=== PATIENT | female | born 1940 | race Caucasian/White ===

== ENCOUNTER 2016-06-22 10:00 | Outpatient (CLI) | payer MEDICARE, BC ==
[2015-05-26 12:15] VITALS: O2SAT 98
== END 2016-06-22 10:01 | disposition home or self-care (01) | DRG 561 ==
LOC: CONVCARE 10:00
PROVIDERS: ATTEND Orthopaedic Surgery
DX: S82.852D Displaced trimalleolar fracture of left lower leg, subsequent encounter for closed fracture with routine healing (principal); M17.12 Unilateral primary osteoarthritis, left knee; M21.062 Valgus deformity, not elsewhere classified, left knee; M79.605 Pain in left leg
CPT/HCPCS: 72170; 73564; 73610

== ENCOUNTER 2016-07-27 05:25 | Inpatient (IN) | payer MEDICARE, BC ==
[2016-07-27] MEDS ORDERED: LACTATED RINGERS 1,000 ML IV ONE (06:00)
[2016-07-27] MEDS: SCOPOLAMINE 1.5MG PATCH TD SCH (06:15)
[2016-07-27] MEDS ORDERED: LACTATED RINGERS 1,000 ML IV SCH (07:00)
[2016-07-27] MEDS ORDERED: SODIUM CHLORIDE 20 ML 40 ML ONE (07:18)
[2016-07-27] MEDS ORDERED: TRANEXAMIC ACID 100 MG/ML SOL ONE (07:18)
[2016-07-27] MEDS ORDERED: LIDOCAINE HCL 1% MPF SOL ONE (07:30)
[2016-07-27] MEDS ORDERED: MORPHINE SULFATE 0.5 MG/ML SOL ONE (07:30)
[2016-07-27] MEDS ORDERED: MIDAZOLAM 2 MG/2 ML SOL ONE (07:30)
[2016-07-27] MEDS ORDERED: METOCLOPRAMIDE HYDROCHLORIDE 5 MG/ML SOL ONE (07:30)
[2016-07-27] MEDS ORDERED: PROPOFOL 10 MG/ML EMU IV ONE (07:30)
[2016-07-27] MEDS ORDERED: DEXAMETHASONE 20 MG/5 ML (4 MG/ML SOL) ONE (07:30)
[2016-07-27] MEDS ORDERED: ONDANSETRON HCL 4 MG/2 ML SOL ONE (07:30)
[2016-07-27] MEDS ORDERED: PROPOFOL 500 MG/50 ML EMU IV ONE (07:31)
[2016-07-27] MEDS ORDERED: CEFAZOLIN SODIUM 1 GM PDS ONE (07:34)
[2016-07-27] MEDS ORDERED: FENTANYL CITRATE 50 MCG/ML SOL ONE ×4 (08:01→10:47)
[2016-07-27] MEDS ORDERED: SUCCINYLCHOLINE CHLORIDE 20 MG/ML SOL IV ONE (08:05)
[2016-07-27] MEDS ORDERED: ROCURONIUM BROMIDE 10 MG/ML SOL IV ONE (08:05)
[2016-07-27] MEDS ORDERED: KETAMINE HYDROCHLORIDE 50 MG/ML SOL ONE (08:18)
[2016-07-27] MEDS: BUPIVACAINE LIPOSOME 20 ML SUS ONE ×2 (09:01→09:35)
[2016-07-27] MEDS ORDERED: LABETALOL HYDROCHLORIDE 5 MG/ML SOL IV ONE (09:10)
[2016-07-27] MEDS ORDERED: ALUMINUM/MAGNESIUM 30 ML SUS PO PRN (10:01)
[2016-07-27] MEDS ORDERED: MORPHINE SULFATE 10 MG/ML SOL IV PRN (10:01)
[2016-07-27] MEDS ORDERED: MAGNESIUM HYDROXIDE 30 ML SUS PO PRN (10:01)
[2016-07-27] MEDS ORDERED: ONDANSETRON 4 MG ODT BU PRN (10:01)
[2016-07-27] MEDS ORDERED: FLEET ENEMA PR PRN (10:01)
[2016-07-27] MEDS ORDERED: SODIUM CHLORIDE 0.9% 500 ML 500 ML IV PRN (10:01)
[2016-07-27] MEDS ORDERED: BISACODYL 10 MG SUP PR PRN (10:01)
[2016-07-27] MEDS ORDERED: TEMAZEPAM 15MG 15 MG CAP PO PRN (10:01)
[2016-07-27] MEDS ORDERED: ONDANSETRON HCL 4 MG/2 ML SOL IV PRN (10:01)
[2016-07-27] MEDS ORDERED: KETOROLAC TROMETHAMINE 30 MG/ML SOL ONE (10:47)
[2016-07-27] MEDS ORDERED: KETOROLAC TROMETHAMINE 30 MG/ML SOL IV ONE (10:50)
[2016-07-27] MEDS ORDERED: FENTANYL CITRATE 50 MCG/ML SOL IV ONE (10:52)
[2016-07-27] MEDS: SODIUM CHLORIDE 0.9% FLUSH 10 ML SOL IV SCH ×2 (12:51→18:13)
[2016-07-27] MEDS: DIPHENHYDRAMINE 50 MG/ML SOL IV PRN (13:14)
[2016-07-27] MEDS: GABAPENTIN 300 MG CAP PO SCH ×2 (13:14→20:09)
[2016-07-27] MEDS: APAP/OXYCODONE 325/5 TAB PO PRN ×2 (13:57→20:06)
[2016-07-27] MEDS: DEXTROSE/SALINE 0.45% 1,000 ML IV SCH (16:25)
[2016-07-27] MEDS: CEFAZOLIN (PREMIX) 1 GM 1 GM/50 ML SOL IV SCH (16:41)
[2016-07-27] MEDS: SENNOSIDES A AND B 8.6 MG TAB PO SCH (20:09)
[2016-07-28] MEDS: CEFAZOLIN (PREMIX) 1 GM 1 GM/50 ML SOL IV SCH (00:20)
[2016-07-28] MEDS: DIAZEPAM 5 MG TAB PO PRN ×2 (00:20→12:06)
[2016-07-28] MEDS: APAP/OXYCODONE 325/5 TAB PO PRN ×5 (02:28→21:04)
[2016-07-28] MEDS: DEXTROSE/SALINE 0.45% 1,000 ML IV SCH ×2 (02:28→12:04)
[2016-07-28] MEDS: SODIUM CHLORIDE 0.9% FLUSH 10 ML SOL IV SCH ×5 (02:29→21:04)
[2016-07-28 07:20] LABS: MEAN CORPUSCULAR HGB CONC 35.1 gm/dl (32.0-36.0)
[2016-07-28] MEDS ORDERED: ERGOCALCIFEROL PO SCH (09:00)
[2016-07-28] MEDS ORDERED: [UNRECOGNIZED DRUG - OTHER] PO SCH (09:00)
[2016-07-28] MEDS ORDERED: CHOLECALCIFEROL PO SCH (09:00)
[2016-07-28] MEDS ORDERED: SODI PO SCH (09:00)
[2016-07-28] MEDS ORDERED: CALCIUM PO SCH ×2 (09:00)
[2016-07-28] MEDS: HYDROCHLOROTHIAZIDE/TRIAMTER 25/37.5 CAPSULE PO SCH (09:24)
[2016-07-28] MEDS: FERROUS SULFATE 325 MG TAB PO SCH (09:24)
[2016-07-28] MEDS: GABAPENTIN 300 MG CAP PO SCH ×3 (09:25→21:03)
[2016-07-28] MEDS: AMLODIPINE 5 MG TAB PO SCH (09:25)
[2016-07-28] MEDS: PANTOPRAZOLE SODIUM 40 MG ECT PO SCH (09:25)
[2016-07-28] MEDS: CALCIUM CARBONATE 500 MG TAB PO SCH (09:25)
[2016-07-28] MEDS: MULTIVITAMIN2 1 EA TAB PO SCH (09:25)
[2016-07-28] MEDS: CHOLECALCIFEROL 1,000 IU TAB PO SCH (09:26)
[2016-07-28] MEDS: RIVAROXABAN 10 MG TAB PO SCH (09:26)
[2016-07-28] MEDS: SERTRALINE HYDROCHLORIDE 50 MG TAB PO SCH (09:26)
[2016-07-28] MEDS: DIPHENHYDRAMINE 50 MG/ML SOL IV PRN ×2 (09:40→14:35)
[2016-07-28] MEDS ORDERED: SODIUM CHLORIDE 0.9% FLUSH 10 ML SOL IV PRN (14:36)
[2016-07-28] MEDS: SENNOSIDES A AND B 8.6 MG TAB PO SCH (21:03)
[2016-07-28] MEDS: TRAZODONE HYDROCHLORIDE 50 MG TAB PO PRN (21:04)
[2016-07-29] MEDS: APAP/OXYCODONE 325/5 TAB PO PRN ×5 (02:41→18:47)
[2016-07-29] MEDS: SODIUM CHLORIDE 0.9% FLUSH 10 ML SOL IV SCH ×3 (06:26→20:41)
[2016-07-29] MEDS: HYDROCHLOROTHIAZIDE/TRIAMTER 25/37.5 CAPSULE PO SCH (09:22)
[2016-07-29] MEDS: FERROUS SULFATE 325 MG TAB PO SCH (09:23)
[2016-07-29] MEDS: GABAPENTIN 300 MG CAP PO SCH ×3 (09:23→20:40)
[2016-07-29] MEDS: RIVAROXABAN 10 MG TAB PO SCH (09:24)
[2016-07-29] MEDS: PANTOPRAZOLE SODIUM 40 MG ECT PO SCH (09:24)
[2016-07-29] MEDS: CHOLECALCIFEROL 1,000 IU TAB PO SCH (09:24)
[2016-07-29] MEDS: SERTRALINE HYDROCHLORIDE 50 MG TAB PO SCH (09:24)
[2016-07-29] MEDS: MULTIVITAMIN2 1 EA TAB PO SCH (09:25)
[2016-07-29] MEDS: AMLODIPINE 5 MG TAB PO SCH (09:25)
[2016-07-29] MEDS: CALCIUM CARBONATE 500 MG TAB PO SCH (09:25)
[2016-07-29] MEDS: SENNOSIDES A AND B 8.6 MG TAB PO SCH (20:40)
[2016-07-29] MEDS: TRAZODONE HYDROCHLORIDE 50 MG TAB PO PRN (20:41)
[2016-07-30] MEDS: SODIUM CHLORIDE 0.9% FLUSH 10 ML SOL IV SCH ×5 (00:12→22:21)
[2016-07-30] MEDS: APAP/OXYCODONE 325/5 TAB PO PRN ×5 (04:52→22:21)
[2016-07-30] MEDS: SCOPOLAMINE 1.5MG PATCH TD SCH (06:06)
[2016-07-30 08:01] LABS: MEAN CORPUSCULAR HGB CONC 33.8 gm/dl (32.0-36.0)
[2016-07-30] MEDS: POLYETHYLENE GLYCOL 17 GM/1 TBS PDS PO SCH (09:50)
[2016-07-30] MEDS: CALCIUM CARBONATE 500 MG TAB PO SCH (09:50)
[2016-07-30] MEDS: RIVAROXABAN 10 MG TAB PO SCH (09:50)
[2016-07-30] MEDS: FERROUS SULFATE 325 MG TAB PO SCH (09:50)
[2016-07-30] MEDS: AMLODIPINE 5 MG TAB PO SCH (09:51)
[2016-07-30] MEDS: PANTOPRAZOLE SODIUM 40 MG ECT PO SCH (09:51)
[2016-07-30] MEDS: HYDROCHLOROTHIAZIDE/TRIAMTER 25/37.5 CAPSULE PO SCH (09:51)
[2016-07-30] MEDS: MULTIVITAMIN2 1 EA TAB PO SCH (09:52)
[2016-07-30] MEDS: GABAPENTIN 300 MG CAP PO SCH ×3 (09:52→22:20)
[2016-07-30] MEDS: SERTRALINE HYDROCHLORIDE 50 MG TAB PO SCH (09:53)
[2016-07-30] MEDS: CHOLECALCIFEROL 1,000 IU TAB PO SCH (09:54)
[2016-07-30] MEDS: DIAZEPAM 5 MG TAB PO PRN (19:26)
[2016-07-30] MEDS: SENNOSIDES A AND B 8.6 MG TAB PO SCH (22:21)
[2016-07-30] MEDS: TRAZODONE HYDROCHLORIDE 50 MG TAB PO PRN (22:21)
[2016-07-31] MEDS: APAP/OXYCODONE 325/5 TAB PO PRN ×2 (06:58→13:22)
[2016-07-31 08:37] VITALS: O2SAT 92
[2016-07-31] MEDS: FERROUS SULFATE 325 MG TAB PO SCH (08:37)
[2016-07-31] MEDS: HYDROCHLOROTHIAZIDE/TRIAMTER 25/37.5 CAPSULE PO SCH (08:37)
[2016-07-31] MEDS: CHOLECALCIFEROL 1,000 IU TAB PO SCH (08:38)
[2016-07-31] MEDS: GABAPENTIN 300 MG CAP PO SCH ×2 (08:38→13:26)
[2016-07-31] MEDS: PANTOPRAZOLE SODIUM 40 MG ECT PO SCH (08:38)
[2016-07-31] MEDS: RIVAROXABAN 10 MG TAB PO SCH (08:38)
[2016-07-31] MEDS: CALCIUM CARBONATE 500 MG TAB PO SCH (08:38)
[2016-07-31] MEDS: MULTIVITAMIN2 1 EA TAB PO SCH (08:38)
[2016-07-31] MEDS: AMLODIPINE 5 MG TAB PO SCH (08:38)
[2016-07-31] MEDS: SERTRALINE HYDROCHLORIDE 50 MG TAB PO SCH (08:39)
[2016-07-31] MEDS: POLYETHYLENE GLYCOL 17 GM/1 TBS PDS PO SCH (08:42)
[2016-07-31 17:30] VITALS: BP 132/62; PULSE 107; RESP 20; TEMP 98.6
== END 2016-07-31 19:05 | disposition home or self-care (01) | DRG 470 ==
LOC: ACUTE CARE 05:25
PROVIDERS: ADMIT Orthopaedic Surgery; ATTEND Orthopaedic Surgery
PROC: F01ZDFZ Gait and/or Balance Assessment using Assistive, Adaptive, Supportive or Protective Equipment (ICD-10-PCS; 2016-07-27)
PROC: F01ZBZZ Bed Mobility Assessment (ICD-10-PCS; 2016-07-27)
PROC: F02Z1ZZ Dressing Assessment (ICD-10-PCS; 2016-07-27)
PROC: F02Z0ZZ Bathing/Showering Assessment (ICD-10-PCS; 2016-07-27)
PROC: F02Z3ZZ Grooming/Personal Hygiene Assessment (ICD-10-PCS; 2016-07-27)
PROC: 0SRD0J9 Replacement of Left Knee Joint with Synthetic Substitute, Cemented, Open Approach (ICD-10-PCS; principal; 2016-07-27 08:00)
DX: M17.12 Unilateral primary osteoarthritis, left knee (principal); I10 Essential (primary) hypertension; M21.062 Valgus deformity, not elsewhere classified, left knee; J45.20 Mild intermittent asthma, uncomplicated; Z96.652 Presence of left artificial knee joint
CPT/HCPCS: 36415; 73560; 85018; 85027; 94150; 99070; J0330; J0690; J1100; J1200; J1885; J2250; J2275; J2405; J2765; J3010; A6232; J2001; J2704

== ENCOUNTER 2016-08-05 11:10 | Emergency (ER) | payer MEDICARE, BC ==
[2016-08-05] MEDS ORDERED: SODIUM CHLORIDE 0.9% 1000ML 1,000 ML IV SCH (11:30)
[2016-08-05 12:01] LABS: BASOPHILS % (AUTO) 2 % (0-3); EOSINOPHILS % (AUTO) 4 % (0-9); HEMATOCRIT 27 % (35-47); MEAN CORPUSCULAR HGB CONC 33.4 gm/dl (32.0-36.0); MEAN CORPUSCULAR VOLUME 90 fL (81-99); MONOCYTES % (AUTO) 7.8 % (0-12); NEUTROPHILS % (AUTO) 70.6 % (37-80)
[2016-08-05 12:03] LABS: CALCIUM 8.7 mg/dl (8.5-10.1); POTASSIUM 3.4 mMol/L (3.5-5.1)
[2016-08-05] MEDS ORDERED: SODIUM CHLORIDE 0.9% FLUSH 10 ML SOL IV PRN (12:04)
[2016-08-05 12:32] VITALS: TEMP 99.6
[2016-08-05] MEDS ORDERED: POTASSIUM CHLORIDE 10 MEQ TER PO ONE (12:34)
[2016-08-05] MEDS ORDERED: POTASSIUM CHLORIDE 10 MEQ TER ONE (12:35)
[2016-08-05 12:51] LABS: APPEARANCE,URINE Clear; BILIRUBIN,URINE NEGATIVE (NEGATIVE); COLOR,URINE Yellow; GLUCOSE, URINE (UA) NEGATIVE (NEGATIVE); KETONES,URINE 1+ (NEGATIVE); LEUKOCYTE ESTERASE ,URINE NEGATIVE (NEGATIVE); NITRATE,URINE NEGATIVE (NEGATIVE); OCCULT BLOOD,URINE TRACE INTACT (NEG-TRACE); UROBILINOGEN,URINE 0.2 (0.2-1.0 EU)
[2016-08-05 12:59] LABS: RBC,URINE 0-1 (0-3AV/HPF); WBC,URINE NEG (0-5AV/HPF)
[2016-08-05] MEDS ORDERED: MORPHINE SULFATE 10 MG/ML SOL IV ONE (13:02)
[2016-08-05] MEDS ORDERED: MORPHINE SULFATE 10 MG/ML SOL ONE (13:04)
[2016-08-05 14:37] VITALS: RESP 18
[2016-08-05 14:39] VITALS: BP 153/67; PULSE 92; O2SAT 97
== END 2016-08-05 14:00 | disposition home or self-care (01) | DRG 556 ==
LOC: ED 11:10
DX: M25.561 Pain in right knee (principal); R53.1 Weakness; Z96.651 Presence of right artificial knee joint
CPT/HCPCS: 36415; 80048; 81001; 85025; 96365; 96374; 99283; 99285; J2270

== ENCOUNTER 2016-08-07 10:09 | Emergency (ER) | payer MEDICARE, BC ==
[2016-08-07 10:57] VITALS: BP 117/69; PULSE 92; RESP 18; TEMP 99.1; O2SAT 96
== END 2016-08-07 12:40 | DRG 948 ==
LOC: ED 10:09
DX: R53.1 Weakness (principal); Z96.651 Presence of right artificial knee joint
CPT/HCPCS: 99282

== ENCOUNTER 2016-09-07 10:15 | Outpatient (CLI) | payer MEDICARE, BC ==
[2016-08-07 10:57] VITALS: O2SAT 96
== END 2016-09-07 10:16 | disposition home or self-care (01) | DRG 561 ==
LOC: CONVCARE 10:15
PROVIDERS: ATTEND Orthopaedic Surgery
DX: Z47.1 Aftercare following joint replacement surgery (principal); Z96.652 Presence of left artificial knee joint
CPT/HCPCS: 73562

== ENCOUNTER 2018-05-24 13:00 | Inpatient (IN) | payer MEDICARE, BC ==
[2018-05-24] MEDS ORDERED: ALBUTEROL NEB SOL 2.5MG/3ML 1 VIAL SOL NEB PRN (15:13)
[2018-05-24] MEDS: SODIUM CHLORIDE 0.9% FLUSH 10 ML SOL IV SCH ×3 (15:47→20:56)
[2018-05-24] MEDS ORDERED: SOLUMEDROL 125 MG/2 ML 125 MG/2 ML PDS IV SCH (16:00)
[2018-05-24] MEDS: ALBUTEROL/IPRATROPIUM 1 VIAL SOL INH SCH ×2 (17:05→20:45)
[2018-05-24] MEDS ORDERED: ACETAMINOPHEN 325 MG PO PRN (17:54)
[2018-05-24] MEDS ORDERED: AZITHROMYCIN 250 MG TAB PO ONE (17:58)
[2018-05-24] MEDS: APAP/HYDROCODONE 1 EACH TABLET PO PRN (20:38)
[2018-05-24] MEDS: POTASSIUM CHLORIDE 10 MEQ TER PO SCH (20:38)
[2018-05-24] MEDS: TRAZODONE HYDROCHLORIDE 50 MG TAB PO PRN (20:39)
[2018-05-24] MEDS: GABAPENTIN 300 MG CAP PO SCH (20:40)
[2018-05-24] MEDS: BUDESONIDE/FORMOTEROL 160/4.5 AER INH SCH (20:41)
[2018-05-25] MEDS: SOLUMEDROL 125 MG/2 ML 125 MG/2 ML PDS IV SCH ×4 (00:16→23:39)
[2018-05-25] MEDS: SODIUM CHLORIDE 0.9% FLUSH 10 ML SOL IV SCH ×6 (00:16→23:40)
[2018-05-25] MEDS: APAP/HYDROCODONE 1 EACH TABLET PO PRN ×2 (08:28→20:20)
[2018-05-25] MEDS: POTASSIUM CHLORIDE 10 MEQ TER PO SCH ×2 (08:29→20:19)
[2018-05-25] MEDS: HYDROCHLOROTHIAZIDE/TRIAMTER 25/37.5 CAPSULE PO SCH (08:29)
[2018-05-25] MEDS: GABAPENTIN 300 MG CAP PO SCH ×3 (08:29→20:19)
[2018-05-25] MEDS: AZITHROMYCIN 250 MG TAB PO SCH (08:30)
[2018-05-25] MEDS: MULTIVITAMIN2 1 EA TAB PO SCH (08:30)
[2018-05-25] MEDS: SERTRALINE HYDROCHLORIDE 50 MG TAB PO SCH (08:30)
[2018-05-25] MEDS: AMLODIPINE 5 MG TAB PO SCH (08:30)
[2018-05-25] MEDS: ALBUTEROL/IPRATROPIUM 1 VIAL SOL INH SCH ×4 (09:08→20:22)
[2018-05-25] MEDS: BUDESONIDE/FORMOTEROL 160/4.5 AER INH SCH ×2 (09:20→20:17)
[2018-05-25] MEDS: TRAZODONE HYDROCHLORIDE 50 MG TAB PO PRN (20:20)
[2018-05-26] MEDS: SODIUM CHLORIDE 0.9% FLUSH 10 ML SOL IV SCH ×5 (06:24→23:53)
[2018-05-26] MEDS: ALBUTEROL/IPRATROPIUM 1 VIAL SOL INH SCH ×4 (08:16→20:53)
[2018-05-26] MEDS: SOLUMEDROL 125 MG/2 ML 125 MG/2 ML PDS IV SCH (08:18)
[2018-05-26] MEDS: SERTRALINE HYDROCHLORIDE 50 MG TAB PO SCH (08:20)
[2018-05-26] MEDS: HYDROCHLOROTHIAZIDE/TRIAMTER 25/37.5 CAPSULE PO SCH (08:20)
[2018-05-26] MEDS: BUDESONIDE/FORMOTEROL 160/4.5 AER INH SCH ×2 (08:21→20:53)
[2018-05-26] MEDS: AZITHROMYCIN 250 MG TAB PO SCH (08:21)
[2018-05-26] MEDS: POTASSIUM CHLORIDE 10 MEQ TER PO SCH ×2 (08:21→20:52)
[2018-05-26] MEDS: MULTIVITAMIN2 1 EA TAB PO SCH (08:21)
[2018-05-26] MEDS: AMLODIPINE 5 MG TAB PO SCH (08:21)
[2018-05-26] MEDS: GABAPENTIN 300 MG CAP PO SCH ×3 (08:29→20:42)
[2018-05-26 10:16] LABS: BASOPHILS % (AUTO) 0 % (0-3); EOSINOPHILS % (AUTO) 0 % (0-9); HEMATOCRIT 41 % (35-47); HEMOGLOBIN 13.5 gm/dl (12.0-15.5); LYMPHOCYTES % (AUTO) 4.7 % (10-50); MEAN CORPUSCULAR HEMOGLOBIN 30.6 pg (27.0-32.0); MEAN CORPUSCULAR HGB CONC 32.6 gm/dl (32.0-36.0); MEAN CORPUSCULAR VOLUME 94 fL (81-99); MONOCYTES % (AUTO) 4.5 % (0-12); NEUTROPHILS % (AUTO) 90.7 % (37-80)
[2018-05-26 10:28] LABS: CALCIUM 9.6 mg/dl (8.5-10.1); CARBON DIOXIDE 22.1 mEq/L (21-32); CREATININE 1.54 mg/dl (0.60-1.00); POTASSIUM 3.9 mMol/L (3.5-5.1)
[2018-05-26] MEDS: ALUMINUM/MAGNESIUM 30 ML SUS PO PRN ×2 (17:41→20:42)
[2018-05-26] MEDS: TRAZODONE HYDROCHLORIDE 50 MG TAB PO PRN (20:42)
[2018-05-27 07:17] LABS: BASOPHILS % (AUTO) 0 % (0-3); CALCIUM 9.1 mg/dl (8.5-10.1); CREATININE 1.05 mg/dl (0.60-1.00); EOSINOPHILS % (AUTO) 0 % (0-9); HEMATOCRIT 40 % (35-47); LYMPHOCYTES % (AUTO) 21.7 % (10-50); MEAN CORPUSCULAR HEMOGLOBIN 30.7 pg (27.0-32.0); MEAN CORPUSCULAR HGB CONC 32.2 gm/dl (32.0-36.0); MEAN CORPUSCULAR VOLUME 95 fL (81-99); MONOCYTES % (AUTO) 7.8 % (0-12); NEUTROPHILS % (AUTO) 69.9 % (37-80); POTASSIUM 4.3 mMol/L (3.5-5.1)
[2018-05-27] MEDS: SODIUM CHLORIDE 0.9% FLUSH 10 ML SOL IV SCH ×2 (07:36→17:26)
[2018-05-27] MEDS: ALBUTEROL/IPRATROPIUM 1 VIAL SOL INH SCH ×3 (08:00→17:51)
[2018-05-27] MEDS ORDERED: PREDNISONE 20 MG TAB PO SCH (09:00)
[2018-05-27] MEDS: POTASSIUM CHLORIDE 10 MEQ TER PO SCH (09:17)
[2018-05-27] MEDS: BUDESONIDE/FORMOTEROL 160/4.5 AER INH SCH (09:17)
[2018-05-27] MEDS: HYDROCHLOROTHIAZIDE/TRIAMTER 25/37.5 CAPSULE PO SCH (09:17)
[2018-05-27] MEDS: AMLODIPINE 5 MG TAB PO SCH (09:17)
[2018-05-27] MEDS: MULTIVITAMIN2 1 EA TAB PO SCH (09:18)
[2018-05-27] MEDS: SERTRALINE HYDROCHLORIDE 50 MG TAB PO SCH (09:18)
[2018-05-27] MEDS: AZITHROMYCIN 250 MG TAB PO SCH (09:18)
[2018-05-27] MEDS: GABAPENTIN 300 MG CAP PO SCH ×2 (09:32→14:10)
[2018-05-27] MEDS: ALUMINUM/MAGNESIUM 30 ML SUS PO PRN (14:15)
[2018-05-27] MEDS: APAP/HYDROCODONE 1 EACH TABLET PO PRN (14:15)
[2018-05-27 15:36] VITALS: BP 139/76; TEMP 98.3
[2018-05-27 17:56] VITALS: RESP 16
[2018-05-27 18:26] VITALS: PULSE 104; O2SAT 93
[2018-05-29] MEDS ORDERED: ACETAMINOPHEN 325 MG ONE (08:48)
== END 2018-05-27 18:25 | disposition home or self-care (01) | DRG 204 ==
LOC: EDSTATUS 13:00 → RAD 13:13 → ACUTE CARE 15:04 → UNDOADMIN 15:04 → UNDODISIN 05-27 18:25
PROVIDERS: ADMIT Family Medicine; ATTEND Family Medicine
DX: R06.02 Shortness of breath (principal); J47.1 Bronchiectasis with (acute) exacerbation; J45.20 Mild intermittent asthma, uncomplicated; R05 Cough; I10 Essential (primary) hypertension
CPT/HCPCS: 36415; 71275; 80048; 83880; 85025; 94640; 94669; J2930; Q9967; A9270-GY